=== PATIENT | female | born 2005 | race Two or more races ===

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

== ENCOUNTER 2025-06-17 13:34 | Outpatient (CLI) | payer OTHER | END 2025-06-17 13:35 | disposition home or self-care (01) | LOC: CSHDTY/OP 13:34 | PROVIDERS: ATTEND Specialist | DX: Z71.3 Dietary counseling and surveillance (principal); E66.01 Morbid (severe) obesity due to excess calories | CPT/HCPCS: 97802 ==

== ENCOUNTER 2025-10-23 14:43 | Emergency (ER) | payer OTHER ==
[2025-10-23 15:39] LABS: #Basophils 0.03 10x3/uL (0.0-0.2); #Eosinophils 0.20 10x3/uL (0.0-0.5); #Monocytes 1.17 10x3/uL (0.0-1.1); #Neutrophils 9.43 10x3/uL (1.5-8.4); %Basophils 0.2 % (0.0-2.0); %Eosinophils 1.5 % (0.0-6.0); %Lymphocytes 20.6 % (18.0-47.0); %Monocytes 8.6 % (0.0-10.0); %Neutrophils 68.9 % (40.0-75.0); Hematocrit 38.8 % (34.9-44.5); Hemoglobin 12.3 g/dL (12.0-15.5); Mean Corpuscular Hemoglobin 25.1 pg (27.0-33.0); Mean Corpuscular Volume 79.0 fL (81.6-98.3); Platelet Count 289 10x3/uL (150-450); Red Blood Cell (RBC) Count 4.91 10x6/uL (3.90-5.03); White Blood Cell (WBC) Count 13.68 10x3/uL (3.5-10.5)
[2025-10-23 15:48] LABS: BHCG - Serum Negative (NEGATIVE); Pregs Control Background? CLEAR/WHITE (CLR/WHITE); Pregs Control Bar Appear? YES (CONTROL BAR)
[2025-10-23] MEDS ORDERED: Metoclopramide HCl 10 MG (2 mL) VIAL ONE (15:53)
[2025-10-23] MEDS ORDERED: diphenhydrAMINE 50 MG/ML VIAL ONE (15:53)
[2025-10-23 15:57] LABS: ALT (SGPT) 23 U/L (Less than 34); AST (SGOT) 17 U/L (11-34); Albumin 3.4 g/dL (3.1-4.5); Alkaline Phosphatase 60 U/L (40-100); Anion Gap 12 mmol/L (10-20); BUN (Urea Nitrogen) 6 mg/dL (7.0-18.7); Bilirubin, Total 0.3 mg/dL (0.3-1.2); Calc. Creatinine Clearance 0 mL/min (70-130); Calcium 8.7 mg/dL (7.8-10.44); Carbon Dioxide 21 mmol/L (22-29); Chloride 108 mmol/L (98-107); Globulin 3.0 g/dL (2.4-3.5); Glucose 78 mg/dL (70-105); Potassium 3.7 mmol/L (3.5-5.1); Sodium 137 mmol/L (136-145)
[2025-10-23 16:20] LABS: Magnesium 1.7 mg/dL (1.7-2.2)
[2025-10-23 17:06] LABS: Glucose, Urine (Dipstick) Normal (Negative); Leukocyte 100 (Negative); Protein, Urine (Dipstick) Negative (Neg-Trace); Specific Gravity, Urine 1.010 (1.005-1.030)
[2025-10-23 17:14] LABS: Cocaine Metabolite Screen Negative (Negative); THC/Cannabinoid Screen Negative (Negative); Tricyclic Screen Negative (Negative)
[2025-10-23 17:31] LABS: Bacteria/HPF 4+ HPF (None Seen); CAUTI Indications for Culture Dysuria,urgency,freq; RBC/HPF 21-50 HPF (0-3)
[2025-10-23 17:32] LABS: Mucous/LPF 1+ LPF (<2+)
[2025-10-23 17:34] LABS: Urine Culture Reflex No No
== END 2025-10-23 18:02 | disposition home or self-care (01) ==
LOC: CSHERS 14:43
DX: N39.0 Urinary tract infection, site not specified (principal); R51.9 Headache, unspecified; R42 Dizziness and giddiness
CPT/HCPCS: 71045; 80053; 80306; 81001; 83735; 84703; 85025; 87428; 93005; 96365; 96366; 96375; J1200; J2765